=== PATIENT | female | born 1955 | race Caucasian/White ===

== ENCOUNTER 2024-06-07 21:57 | Emergency (ER) | payer MEDICAID ==
[~2024-06-07] VITALS: Ht 162.6 cm; Wt 71.0 kg
[2024-06-07 22:12] VITALS: BP 133/78; PULSE 87; RESP 18; TEMP 98.4; O2SAT 100
[2024-06-08] MEDS ORDERED: BACITRACIN ZINC OINT UDPKT TOP ONE
[2024-06-08] MEDS ORDERED: TETANUS, DIPHTHERIA, PERTUSSIS VAC/PF 0.5ML (>10YR OLD) IM ONE
[2024-06-08] MEDS ORDERED: LIDOCAINE HCL/PF 1% 10 MG/ML 5ML VIAL INFIL ONE
[2024-06-08] MEDS ORDERED: CEPH500T MT (03:06)
[2024-06-08] MEDS ORDERED: BO1 TP (03:06)
== END 2024-06-08 05:09 | disposition home or self-care (01) ==
LOC: ER 21:57
DX: S61.412A Laceration without foreign body of left hand, initial encounter (principal); S59.902A Unspecified injury of left elbow, initial encounter; S80.811A Abrasion, right lower leg, initial encounter; S00.81XA Abrasion of other part of head, initial encounter; G31.89 Other specified degenerative diseases of nervous system; W18.39XA Other fall on same level, initial encounter; Y93.89 Activity, other specified; Y92.89 Other specified places as the place of occurrence of the external cause; Y99.8 Other external cause status
CPT/HCPCS: 12004; 70486; 73080; 73090; 73130; 73560; 73562; 73590; 99284; A4565